=== PATIENT | female | born 1940 | race Caucasian/White ===

== ENCOUNTER → 2017-03-08 | Outpatient (CLI) | payer MEDICARE, OTHER | LOC: MW.CHOBGYN 08:00 | PROVIDERS: ATTEND Nurse Practitioner Women's Health | DX: M81.0 Age-related osteoporosis without current pathological fracture (principal) | CPT/HCPCS: 96372; J0897 ==

== ENCOUNTER 2021-12-08 09:32 | Day surgery (SDC) | payer MEDICARE, OTHER ==
[~2021-12-08 09:32] MED LIST: Lactated Ringers 1,000 ML IV SCH; Sodium Chloride 0.9% 10 ML Syringe FLUSH PRN; Sodium Chloride 0.9% 2.5 ML Syringe FLUSH PRN; Sodium Chloride 0.9% 20 ML SDV IV PRN; propofoL 50 ML ONE
[2021-12-08 13:37] VITALS: BP 119/60; PULSE 58
== END 2021-12-08 11:15 | disposition home or self-care (01) ==
LOC: MW.SDS 09:32
PROVIDERS: ATTEND Surgery
DX: D12.8 Benign neoplasm of rectum (principal); K57.31 Diverticulosis of large intestine without perforation or abscess with bleeding; F32.A Depression, unspecified; E78.00 Pure hypercholesterolemia, unspecified; Z88.2 Allergy status to sulfonamides; Z79.899 Other long term (current) drug therapy; Z98.890 Other specified postprocedural states
CPT/HCPCS: 45385; J2704; J7120; 00811; 99100

== ENCOUNTER 2024-07-12 07:34 | Day surgery (SDC) | payer MEDICARE, OTHER ==
[~2024-07-12 07:34] MED LIST changes: -Lactated Ringers 1,000 ML IV SCH; -propofoL 50 ML ONE
[2024-07-12] MEDS: Lactated Ringers 1,000 ML IV SCH (08:05)
[2024-07-12] MEDS ORDERED: propofoL 50 ML ONE (08:25)
[2024-07-12] MEDS ORDERED: Lidocaine 2% 5 ML SDV ONE (08:25)
[2024-07-12 10:48] VITALS: BP 117/51
[2024-07-12 13:43] VITALS: PULSE 60
== END 2024-07-12 11:25 | disposition home or self-care (01) ==
LOC: MW.SDS 07:34
PROVIDERS: ATTEND Surgery
DX: K57.31 Diverticulosis of large intestine without perforation or abscess with bleeding (principal); K44.9 Diaphragmatic hernia without obstruction or gangrene; F32.A Depression, unspecified; D50.9 Iron deficiency anemia, unspecified; E78.00 Pure hypercholesterolemia, unspecified; Z79.899 Other long term (current) drug therapy; Z88.2 Allergy status to sulfonamides
CPT/HCPCS: 43239; 45378; J2704; J7120; 00813; 88305; 99100; J3490